=== PATIENT | female | born 1960 | race Caucasian/White ===

== ENCOUNTER 2020-09-27 11:08 | Outpatient (CLI) | payer OTHER | END 2020-09-27 11:09 | disposition home or self-care (01) | LOC: BICMAMMO 11:08 | PROVIDERS: ATTEND Family Medicine | DX: Z12.31 Encounter for screening mammogram for malignant neoplasm of breast (principal) | CPT/HCPCS: 77063; 77067 ==

== ENCOUNTER 2020-09-27 11:36 | Outpatient (CLI) | payer OTHER | END 2020-09-27 11:37 | disposition home or self-care (01) | LOC: BICRAD 11:36 | PROVIDERS: ATTEND Family Medicine | DX: Z72.0 Tobacco use (principal) | CPT/HCPCS: 71046 ==